=== PATIENT | male | born 1960 | race Caucasian/White ===

== ENCOUNTER → 2021-10-09 | Day surgery (SDC) | payer BC ==
[2021-10-08 10:02] VITALS: BMI 26.9
[~2021-10-09] MED LIST: GLYCOPYRROLATE 0.2 MG/1 ML VIAL ONE
[2021-10-09 09:37] VITALS: TEMP 97.8
[2021-10-09 10:03] VITALS: BP 111/77; PULSE 71
== END | disposition home or self-care (01) ==
LOC: FASU-ENDO 07:36
PROVIDERS: ATTEND Internal Medicine Gastroenterology
PROC: 0DJD8ZZ Inspection of Lower Intestinal Tract, Via Natural or Artificial Opening Endoscopic (ICD-10-PCS; principal; 2021-10-09 08:42)
DX: Z86.010 Personal history of colon polyps (principal); K57.30 Diverticulosis of large intestine without perforation or abscess without bleeding